=== PATIENT | male | born 1970 | race Caucasian/White ===

== ENCOUNTER 2016-10-25 10:24 | Inpatient (IN) | payer BC, OTHER ==
[~2016-10-25] VITALS: Ht 170.2 cm; Wt 90.7 kg
--- NOTE | 2016-10-26 16:30 | NUR ---
Intake assessment; Patient is a 45 year old male, AOX4 , presented to [facility] to Detoxify from Heroin, Oxycontin, Methamphetamine. Patient is from [place], [place] and arrived in intake office at approximately at 1600. Patient appears anxious with flushed face. Patient remained cooperative during nursing assessment. Patient denies any allergies or seizure history. Admitting vital signs are as follows; BP 121/56, HR 80, Temperature 98.0, respirations 18 and Spo2 98%, patient denies pain at this time. Height of 5'7 and weighs 200lbs. Educated patient regarding unit protocols and policies, verbalized understanding. Will continue with further assessment when patient is up in the unit.
[2016-10-26] MEDS ORDERED: [UNRECOGNIZED DRUG - CODE] TP (17:13)
[2016-10-26] MEDS ORDERED: FINA1TAB PO (17:13)
--- NOTE | 2016-10-26 18:21 | NUR ---
Admission note; Patient is a 45 year old male, AOX4 , presented to [facility] to Detoxify from Heroin, Oxycontin, Methamphetamine. Patient is from [place], [place] and arrived in intake office at approximately at 1600. He is the primary source of information. Patient is admitted under the care of Dr. Canada to room 302. Urine provided by patient for urine drug screen. Thorough body and belonging check done by HAND CLERICAL VERIFIER. Skin check done with no significant findings. Patient appears anxious with flushed face. Patient remained cooperative during nursing assessment. Patient denies any allergies or seizure history. Admitting vital signs are as follows; BP 121/56, HR 80, Temperature 98.0, respirations 18 and Spo2 98%, patient denies pain at this time. Height of 5'7 and weighs 200lbs. Discussed substance use history. Patient first started using Heroin 17 years ago, at this rate patient has been using 0.5 grams of heroin daily or every other day basis for 6 months, last used today prior to admission. Patient also reported using OxyContin for 4 months ranging a total use of 200mg per week, last used 10/21/16. Patient also reported using Methamphetamine for 1 year, amount was 0.5-1 gram daily or every other day basis, last used 10/25/16. Patient occasionally takes Klonopin when available, approximately total of 6mg/week last used 10/23/16. Discussed psych and medical history. Patient reported history of rosacea, anxiety and hernia surgery when he was 19 years old. Patient currently lives with his and 2 kids. Patient has been to [facility] 15 years ago and was transferred to [facility] in [place] after detox treatment. Patient does not have primary care physician. Patients current COWS is 4 and CIWA of 1. Patient oriented to unit by HAND CLERICAL VERIFIER. Safety measures in place. Will continue to monitor patient. MD notified.
[2016-10-26 18:24] LABS: *AMPHETAMINE, URINE POSITIVE (NEGATIVE); *BARBITURATE, URINE NEGATIVE (NEGATIVE); *CANNABINOID, URINE NEGATIVE (NEGATIVE); *COCCAINE, URINE POSITIVE (NEGATIVE); *OPIATE, URINE POSITIVE (NEGATIVE); *PHENCYCLIDINE SCREEN,URINE NEGATIVE (NEGATIVE)
--- NOTE | 2016-10-26 18:51 | NUR ---
End of shift note; Patient is AOX4. Md notified of patient's history. No medications administered at this time. All safety measures secured. Met all needs.
[2016-10-26] MEDS ORDERED: ONDANSETRON 4 MG/2 ML VIAL IM PRN (19:00)
[2016-10-26] MEDS ORDERED: MAGNESIUM HYDROXIDE 30 ML LIQUID UDC PO PRN (19:00)
[2016-10-26] MEDS ORDERED: LOPERAMIDE HCL 2 MG CAPSULE PO PRN ×2 (19:00)
[2016-10-26] MEDS ORDERED: MAG HYDROX/AL HYDROX/SIMETH 30 ML LIQUID UDC PO PRN (19:00)
[2016-10-26] MEDS ORDERED: ACETAMINOPHEN 325 MG TABLET PO PRN (19:00)
[2016-10-26] MEDS ORDERED: MIRALAX 17 GM POWD.PACK PO PRN (19:00)
[2016-10-26] MEDS ORDERED: LORAZEPAM 1 MG TABLET PO PRN ×2 (19:00)
[2016-10-26] MEDS ORDERED: LORAZEPAM 2 MG/1 ML VIAL IM PRN (19:00)
[2016-10-26] MEDS ORDERED: diphenhydrAMINE 50 MG CAPSULE PO PRN (19:00)
[2016-10-26] MEDS ORDERED: IBUPROFEN 600 MG TABLET PO PRN (19:00)
--- NOTE | 2016-10-26 19:15 | NUR ---
START OF SHIFT NOTE : Patient is a 45 year old male admitted to [facility] [place] [facility] on 10/26/2016 for Heroin, Oxycontin, Methamphetamine dependency . Patient denies any allergies or seizure history. . Patent is full code, regular diet, NKA , is on fall precautions. COWS is 4 and CIWA of 1 at 16:00. No SI/HI at this moment. Skin is dry, warm and intact, encouraged to notify staff with any concerns. Safety measures in place : bed on lowest position with side rails x2 up for safety, call light within reach. Will continue to monitor closely and offer help.
[2016-10-26 20:00] VITALS: BP 112/80
[2016-10-26 21:31] LABS: ALANINE AMINOTRANSFERASE 61 U/L (16-63); ALKALINE PHOSPHATASE 74 U/L (50-136); ASPARTATE AMINOTRANSFERASE 26 U/L (15-37); BASOPHILS % (AUTO) 0.8 % (0.0-2.0); BILIRUBIN,TOTAL 0.5 mg/dL (0.2-1.0); CARBON DIOXIDE 35 mmol/L (21-32); CHLORIDE 102 mmol/L (98-107); CREATININE 1.1 mg/dL (0.6-1.3); EOSINOPHILS # (AUTO) 0.2 K/uL (0.0-0.7); GLUCOSE 90 mg/dL (74-106); HEMATOCRIT 44.4 % (40-50); HEMOGLOBIN 15.1 G/DL (14.0-18.0); LYMPHOCYTES # (AUTO) 1.8 K/UL (0.8-4.8); LYMPHOCYTES % (AUTO) 38.9 % (20.5-51.5); MAGNESIUM 2.1 mg/dL (1.8-2.4); MEAN CORPUSCULAR HGB CONC 34 g/dL (32.0-37.0); MEAN CORPUSCULAR VOLUME 85.3 FL (82.0-92.0); MONOCYTES # (AUTO) 0.3 K/UL (0.1-1.30); MONOCYTES % (AUTO) 6.9 % (0.0-11.0); NEUTROPHILS # (AUTO) 2.2 K/UL (1.8-8.9); NEUTROPHILS % (AUTO) 49.4 % (38.5-71.5); PLATELET COUNT (AUTO) 250 K/UL (150-450); POTASSIUM 3.9 mmol/L (3.5-5.1); RED BLOOD CELL COUNT(AUTO) 5.21 MIL/UL (4.7-6.1); TOTAL PROTEIN, SERUM 7.9 g/dL (6.4-8.2); UREA NITROGEN, BLOOD 21 mg/dL (7-18); WHITE BLOOD COUNT (AUTO) 4.5 K/UL (4.0-11.2)
[2016-10-26 21:35] LABS: ETHANOL < 3 MG/DL (0-0)
[2016-10-27 04:00] VITALS: BP 104/64
--- NOTE | 2016-10-27 06:30 | NUR ---
END OF SHIFT NOTE : Patient is a 45 year old male admitted to [facility] [place] on 10/26/2016 for Heroin, Oxycontin, Methamphetamine dependency . Patient denies any allergies or seizure history. . Patent is full code, regular diet, NKA , is on fall precautions. COWS is 4 and CIWA of 1 at 16:00. No SI/HI at this moment. Skin is dry, warm and intact, encouraged to notify staff with any concerns. Pt remains compliant with the treatment plan. No PRNs were given during my shift. V/S remain WNL. RR=16, even and unlabored, lungs clear upon auscultation, abdomen soft and non- distended. Pt denies nausea, vomiting and diarrhea. LAST CIWA= 1 ,COWS=4 at 0400 , QIZCZJ=097 ml, voided x2 , slept 6 hours. Safety measures in place : bed on lowest position with side rails x2 up for safety, call light within reach. Will continue to monitor closely and offer help.
--- NOTE | 2016-10-27 07:43 | NUR ---
START OF SHIFT Pt 45 y/o male admitted for opiate dependence. Pt received in room on bed with eyes closed resting, but easily arousable to name. Pt alert and oriented to name, place, and time. Perrla. Skin warm and slightly moist to touch. Respirations even and unlabored. It was reported that pt slept for 6 hours last night. Bed on lowest position with side rails x2 up for safety. Call light within reach. No distress noted at this time.
[2016-10-27 08:42] VITALS: BP 118/71
[2016-10-27] MEDS: MULTIVITAMINS,THERAPEUTIC TABLET PO SCH (08:50)
[2016-10-27] MEDS: METHOCARBAMOL 750 MG TABLET PO PRN ×2 (08:50→21:14)
[2016-10-27] MEDS: DOCUSATE SODIUM 250 MG CAPSULE PO SCH (08:50)
[2016-10-27] MEDS: ONDANSETRON ODT 4 MG TAB.RAPDIS SL PRN (08:56)
--- NOTE | 2016-10-27 08:59 | NUR ---
PRN Pt states feels nauseous. Zofraon odt prn per MD order given and tolerated well.
[2016-10-27] MEDS ORDERED: TUBERCULIN,PURIF.PROT.DERIV. 5 TU/0.1 ML TEST ID ONE (09:00)
--- NOTE | 2016-10-27 09:00 | NUR ---
PRN Pt states has body aches 6/10. Robaxin po prn per Md order given and tolerated well.
--- NOTE | 2016-10-27 09:59 | NUR ---
PRN EVAL Pt denies nausea at this time.
--- NOTE | 2016-10-27 10:00 | NUR ---
PRN SHANITA Pt states pain 04/15.
[2016-10-27] MEDS: BUPRENORPHINE HCL 2 MG TAB.SUBL SL PRN ×2 (10:01→15:25)
--- NOTE | 2016-10-27 10:03 | NUR ---
PRN ADMINISTRATION: PT VERBALIZED HE WAS NOT FEELING WELL, ASSESSED PT AND NOTED WITH COWS OF 15. PRN 4 MG WAS ADMINISTERED.
--- NOTE | 2016-10-27 11:03 | NUR ---
PRN EVAL cows=6. Pt observed in room on bed watching television.
[2016-10-27 12:00] VITALS: BP 124/74
[2016-10-27] MEDS: BUPRENORPHINE HCL 2 MG TAB.SUBL SL SCH ×2 (14:22→21:14)
[2016-10-27] MEDS: DICYCLOMINE HCL 20 MG TABLET PO PRN (14:22)
--- NOTE | 2016-10-27 14:24 | NUR ---
PRN Pt with c/o stomach cramps. Bentyl po prn per MD order given and tolerated well.
[2016-10-27] MEDS: LORAZEPAM 1 MG TABLET PO SCH ×2 (15:21→21:13)
[2016-10-27] MEDS: GABAPENTIN 300 MG CAPSULE PO SCH ×2 (15:21→21:14)
--- NOTE | 2016-10-27 15:24 | NUR ---
PRN EVAL Pt observed sitting on bed watching television. Pt denies stomach cramp.
--- NOTE | 2016-10-27 15:25 | NUR ---
PRN Pt with cows =15. Subutex 4 mg po prn per MD order given and tolerated well.
--- NOTE | 2016-10-27 16:25 | NUR ---
PRN EVAL Pt with cows=5 and observed laying on bed in room watching television.
[2016-10-27 17:00] VITALS: BP 122/84
--- NOTE | 2016-10-27 18:24 | NUR ---
END OF SHIFT Pt 45 y/o male admitted for opiate dependence. Pt alert and oriented to name, place, and time. Perrla. Skin warm and slightly moist to touch. Respirations even and unlabored. Pt with bilateral hand tremors noted slightly. Pt observed mostly isolative to room throughout the day. Pt did not attend group activity even with encouragement. Pt was seen by MD today. Pt medication compliant and tolerated well. No ASE noted. Bed on lowest position with side rails x2 up for safety. Call light within reach. No distress noted at this time.
[2016-10-27 20:00] VITALS: BP 137/77
--- NOTE | 2016-10-27 20:10 | NUR ---
START OF SHIFT Received report from day shift nurse. Pt attended a group meeting and returned to his room after. He is a 45 yo male admitted to [facility] on 10/26 for opiate dependence. He is A&O x4 and ambulatory. NKA, full code status, and on a regular diet. He has a PMH of rosacea, hernia surgery, and anxiety. On admission he admitted to using klonopin 6mg per week "occasional use only", heroin 0.5 grams per day, oxycontin 200mg/week, and methamphetamine 0.5-1 gram per day. He started a 5 day subutex and 4 day Ativan taper today. Pt reports generalized muscle aches, joint aches, runny nose, and "crawling out of my skin". He is observed to have larger than normal pupils and flushed face. Tapers due tonight. Fall precautions in place. Bed is down with call light in reach.
--- NOTE | 2016-10-27 21:25 | NUR ---
PRN Robaxin and Milk of Magnesia Pt c/o generalized muscle and joint aches. PRN Robaxin administered. He reports no BM since prior to admission. Encouraged fluids. PRN Milk of Magnesia administered.
--- NOTE | 2016-10-27 21:47 | NUR ---
PRN Fleets enema Pt no BM in several days. Encouraged fluids. PRN Fleets enema administered. Addendum: 10/28/16 at 0401 by EDY STROUD RN Documentation done on incorrect patient.
--- NOTE | 2016-10-27 22:25 | NUR ---
PRN Robaxin and Milk of Magnesia reassessment PRN Robaxin effective. Pt reports muscle and joint aches are reduced to a mild level. Milk of Magnesia not yet effective.
[2016-10-28] VITALS: BP 111/69
[2016-10-28] MEDS: CLONIDINE HCL 0.1 MG TABLET PO PRN ×2 (00:08→12:33)
--- NOTE | 2016-10-28 00:10 | NUR ---
PRN Clonidine, Benadryl, and Motrin Pt reports feeling anxious, restless, with chills and inability to sleep. He reports generalized body aches 6/10. PRN Clonidine, Benadryl and Motrin administered.
--- NOTE | 2016-10-28 01:10 | NUR ---
PRN Clonidine, Benadryl, and Motrin reassessment PRN Clonidine, Benadryl, and Motrin effective. Pt is lying in bed resting with eyes closed. Respirations even and unlabored. Safety measures in place.
[2016-10-28 04:00] VITALS: BP 120/64
--- NOTE | 2016-10-28 04:00 | NUR ---
0400 COWS and CIWA deferred COWS and CIWA ordered Q4HWA. Pt is lying in bed resting with eyes closed. Vital signs obtained. Safety measures in place.
--- NOTE | 2016-10-28 07:22 | NUR ---
END OF SHIFT Report provided to day shift nurse. Pt is lying in bed resting. He is a 45 yo male admitted to [facility] on 10/26 for opiate dependence. He is A&O x4 and ambulatory. NKA, full code status, and on a regular diet. He has a PMH of rosacea, psoriasis, hernia surgery, and anxiety. On admission he admitted to using klonopin 6mg per week "occasional use only", heroin 0.5 grams per day, oxycontin 200mg/week, and methamphetamine 0.5-1 gram per day. He started a 5 day subutex and 4 day Ativan taper on 10/27/16. He is compliant with treatment. PRN Robaxin, Milk of Magnesia, Ibuprofen, Clonidine, and Benadryl administered along with tapers for the management of withdrawal symptoms. No BM reported yet. Vital signs have been stable. Last COWS 7 and CIWA 5. He drank 1092mL and slept for 7 hours[address] Fall precautions in place. Bed is down with call light in reach.
--- NOTE | 2016-10-28 07:44 | NUR ---
START OF SHIFT Pt 45 y/o male admitted for opiate dependence. Pt received in room on bed with eyes closed resting with television on, but easily arousable to name. Pt alert and oriented to name, place, and time. Perrla. Skin warm and slightly moist to touch. Respirations even and unlabored. It was reported that pt slept for 7 hours last night. Bed on lowest position with side rails x2 up for safety. Call light within reach. No distress noted at this time.
[2016-10-28 08:00] VITALS: BP 112/74
[2016-10-28] MEDS: LORAZEPAM 1 MG TABLET PO SCH ×4 (09:00→20:52)
[2016-10-28] MEDS ORDERED: BUPRENORPHINE HCL 2 MG TAB.SUBL SL SCH (09:00)
[2016-10-28] MEDS: GABAPENTIN 300 MG CAPSULE PO SCH ×3 (09:00→20:53)
[2016-10-28] MEDS: DOCUSATE SODIUM 250 MG CAPSULE PO SCH (09:00)
[2016-10-28] MEDS: MULTIVITAMINS,THERAPEUTIC TABLET PO SCH (09:00)
[2016-10-28 10:11] LABS: HEPATITIS B SURFACE AG Negative (Negative)
[2016-10-28] MEDS: DICYCLOMINE HCL 20 MG TABLET PO PRN (12:33)
[2016-10-28] MEDS: METHOCARBAMOL 750 MG TABLET PO PRN ×2 (12:33→21:35)
[2016-10-28] MEDS: ONDANSETRON ODT 4 MG TAB.RAPDIS SL PRN (12:33)
--- NOTE | 2016-10-28 12:38 | NUR ---
PRN Pt states has stomach cramps. Bentyl po prn per MD order given and tolerated well.
--- NOTE | 2016-10-28 12:38 | NUR ---
PRN Pt states feels nauseous. Zofran odt prn per MD order given and tolerated well.
--- NOTE | 2016-10-28 12:39 | NUR ---
PRN Pt states has body aches 8/10. Robaxin po prn per MD order given and tolerated well.
[2016-10-28 12:40] VITALS: BP 122/78
[2016-10-28] MEDS ORDERED: BUPRENORPHINE HCL 2 MG TAB.SUBL SL ONE (12:45)
--- NOTE | 2016-10-28 13:27 | NUR ---
PRN Pt with cows=12. Pt states skin is crawling and feels very uncomfortable. MD notified with new order for subutex 2 mg po once, noted and carried out.
--- NOTE | 2016-10-28 13:38 | NUR ---
PRN EVAL Pt denies any nausea at this time.
--- NOTE | 2016-10-28 13:38 | NUR ---
PRN SHANITA Pt denies any stomach cramps at this time.
--- NOTE | 2016-10-28 13:39 | NUR ---
PRKathy DIEHL Pt states body aches 04/15. Pt observed in room on bed watching television.
--- NOTE | 2016-10-28 14:27 | NUR ---
PRN EVAL Pt with cows=5 noted.
[2016-10-28] MEDS: BUPRENORPHINE HCL 2 MG TAB.SUBL SL SCH ×2 (14:52→20:53)
[2016-10-28 16:00] VITALS: BP 126/86
--- NOTE | 2016-10-28 18:37 | NUR ---
END OF SHIFT Pt 45 y/o male admitted for opiate dependence. Pt alert and oriented to name, place, and time. Perrla. Skin warm and slightly moist to touch. Respirations even and unlabored. Pt with bilateral hand tremors noted slightly. Pt with periods of anxiety this afternoon. Pt observed mostly isolative to room throughout the day. Pt selective with group activity. Pt was seen by MD today. Pt medication compliant and tolerated well. No ASE noted. Bed on lowest position with side rails x2 up for safety. Call light within reach. No distress noted at this time.
[2016-10-28 20:00] VITALS: BP 112/71
--- NOTE | 2016-10-28 20:00 | NUR ---
START OF SHIFT Report received from day shift nurse. Pt attended a group meeting and returned to his room after. He is a 45 [address] to [facility] on 10/26 for opiate dependence. He is A&O x4 and ambulatory. NKA, full code status, and on a regular diet. Pt has a PMH of rosacea, hernia surgery, and anxiety. On admission he admitted to using klonopin 6mg per week "occasional use only", heroin 0.5 grams per day, oxycontin 200mg/week, and methamphetamine 0.5-1 gram per day. He started a 5 day subutex and 4 day Ativan taper on 10/27. Pt reports feeling very anxious with skin crawling. He is emotional and tearful. His skin is moist and face is flushed. Provided support. Tapers due tonight. Fall precautions in place. Bed is down with call light in reach.
[2016-10-28] MEDS: HYDROXYZINE PAMOATE 25 MG CAPSULE PO PRN (21:35)
--- NOTE | 2016-10-28 21:35 | NUR ---
PRN Vistaril and Robaxin Pt reports feeling anxious and unable to relax. Ativan taper was only somewhat effective. He verbalizes that his skin is crawling and he has generalized body aches. COWS 6 and CIWA 5. PRN Vistaril and Robaxin administered.
--- NOTE | 2016-10-28 22:35 | NUR ---
PRN Vistaril and Robaxin reassessment PRN Vistaril and Robaxin effective. Pt is lying in bed resting with eyes closed. Respirations even and unlabored. Safety measures in place.
--- NOTE | 2016-10-29 | NUR ---
0000 Vitals refused/COWS and CIWA deferred Pt refused to be woken for 0400 vitals. He is lying in bed resting with eyes closed. Respirations even and unlabored. COWS and JOSEWA ordered Q4HWA. Safety measures in place. Addendum: 10/29/16 at 0539 by EDY STROUD RN Correction: Pt refused to be woken for 0000 vitals.
--- NOTE | 2016-10-29 04:00 | NUR ---
0400 Vitals refused/COWS and CIWA deferred Pt refused to be woken for 0400 vitals. He is lying in bed resting with eyes closed. Respirations even and unlabored. COWS and CIWA ordered Q4HWA. Safety measures in place.
--- NOTE | 2016-10-29 07:27 | NUR ---
END OF SHIFT Report provided to day shift nurse. Pt is lying in bed resting. He is a 45 yo male admitted to [facility] on 10/26 for opiate dependence. He is A&O x4 and ambulatory. NKA, full code status, and on a regular diet. Pt has a PMH of rosacea, hernia surgery, and anxiety. On admission he admitted to using klonopin 6mg per week "occasional use only", heroin 0.5 grams per day, oxycontin 200mg/week, and methamphetamine 0.5-1 gram per day. He started a 5 day subutex and 4 day Ativan taper on 10/27. Last COWS 6 and CIWA 5. PRN Vistaril and Robaxin administered. He drank 900mL and slept for 8 hours. Tapers due tonight. Fall precautions in ordered. Bed is down with call light in reach.
--- NOTE | 2016-10-29 07:39 | NUR ---
START OF SHIFT Pt 45 y/o male admitted for opiate dependence. Pt received in room on bed with eyes closed resting, but easily arousable to name. Pt alert and oriented to name, place, and time. Perrla. Skin warm and slightly moist to touch. Respirations even and unlabored. Bilateral hand tremors noted slightly. It was reported that pt slept for 8 hours last night. Bed on lowest position with side rails x2 up for safety. Call light within reach. No distress noted at this time.
[2016-10-29 08:00] VITALS: BP 115/71
[2016-10-29] MEDS: DOCUSATE SODIUM 250 MG CAPSULE PO SCH (08:41)
[2016-10-29] MEDS: LORAZEPAM 1 MG TABLET PO SCH ×3 (08:41→21:30)
[2016-10-29] MEDS: MULTIVITAMINS,THERAPEUTIC TABLET PO SCH (08:41)
[2016-10-29] MEDS: GABAPENTIN 300 MG CAPSULE PO SCH ×2 (08:41→14:19)
[2016-10-29] MEDS: BUPRENORPHINE HCL 2 MG TAB.SUBL SL SCH ×3 (08:41→21:00)
[2016-10-29] MEDS ORDERED: FINASTERIDE 1 MG PO SCH (09:00)
[2016-10-29] MEDS: CLONIDINE HCL 0.1 MG TABLET PO PRN (12:20)
[2016-10-29] MEDS: HYDROXYZINE PAMOATE 25 MG CAPSULE PO PRN (12:20)
[2016-10-29] MEDS: METHOCARBAMOL 750 MG TABLET PO PRN (12:20)
--- NOTE | 2016-10-29 12:25 | NUR ---
PRN Pt states has body aches 6/10. Robaxin po prn per MD order given and tolerated well.
--- NOTE | 2016-10-29 12:25 | NUR ---
PRN Pt states feels anxious. Vistaril po prn per MD order given and tolerated well.
--- NOTE | 2016-10-29 12:27 | NUR ---
PRN Pt states feels very anxious and appears restless with pressured speech noted. Catapres po prn per MD order given and tolerated well.
[2016-10-29 12:28] VITALS: BP 137/88
--- NOTE | 2016-10-29 13:25 | NUR ---
PRN SHANITA Pt states pain 04/15.
--- NOTE | 2016-10-29 13:27 | NUR ---
PRN SHANITA Pt observed laying on bed watching television. No distress noted at this time.
[2016-10-29] MEDS: CLONIDINE HCL 0.1 MG TABLET PO SCH ×2 (16:49→21:00)
[2016-10-29] MEDS: BACLOFEN 10 MG TABLET PO SCH ×2 (16:49→17:00)
--- NOTE | 2016-10-29 17:26 | NUR ---
MEDICATION Baclofen 10mg po due at 1700 non- admin per RX. medication was given at 1649.
[2016-10-29 17:34] VITALS: BP 112/75
--- NOTE | 2016-10-29 18:12 | NUR ---
END OF SHIFT Pt 45 y/o male admitted for opiate dependence. Pt alert and oriented to name, place, and time. Perrla. Skin warm and slightly moist to touch. Respirations even and unlabored. Pt with bilateral hand tremors noted slightly. Pt with periods of anxiety this morning. Pt observed mostly isolative to room throughout the day. Pt selective with group activity. Pt was seen by MD today. Pt medication compliant and tolerated well. No ASE noted. Bed on lowest position with side rails x2 up for safety. Call light within reach. No distress noted at this time.
[2016-10-29] MEDS ORDERED: HYDROXYZINE PAMOATE 25 MG CAPSULE PO SCH (19:00)
--- NOTE | 2016-10-29 19:50 | NUR ---
START OF SHIFT Report received from day shift nurse. Pt is lying in bed watching TV. He is a 45 yo male admitted to [facility] on 10/26 for opiate dependence. He is A&O x4 and ambulatory. NKA, full code status, and on a regular diet. Pt has a PMH of rosacea, hernia surgery, and anxiety. On admission he admitted to using klonopin 6mg per week "occasional use only", heroin 0.5 grams per day, oxycontin 200mg/week, and methamphetamine 0.5-1 gram per day. He started a 5 day subutex and 4 day Ativan taper on 10/27. Pt reports feeling anxious with body aches. He is noted with moist skin. Tapers due tonight. Fall precautions in place. Bed is down with call light in reach.
[2016-10-29 20:00] VITALS: BP 108/65
[2016-10-29] MEDS ORDERED: GABAPENTIN 300 MG CAPSULE PO SCH (21:00)
--- NOTE | 2016-10-29 21:54 | NUR ---
RN note AMA Patient verbalized that he wanted to go AMA and that he stated that "this place is not working out for me." Patient was reminded of the policies of the unit and he was not compliant and cooperative. Pt was disrespectful to staff. Benjie, branch rental manager, and Dr. Randhawa, notified. Patient was explained the risks and benefits of leaving AMA and patient still adamant. Patient's belongings were returned to him except for home meds, which are locked inside the pharmacy. Pharmacy is closed. Informed patient that he can come back today to package pick up his home medications. Vital signs are stable. No SOB noted. Patient was given a list of community resources. Pt signed AMA papers. Pt left unit at 2154 without complications.
[2016-10-30] MEDS ORDERED: LORAZEPAM 1 MG TABLET PO SCH (09:00)
[2016-10-30] MEDS ORDERED: BUPRENORPHINE HCL 2 MG TAB.SUBL SL SCH (09:00)
[2016-10-30] MEDS ORDERED: GABAPENTIN 300 MG CAPSULE PO SCH (09:00)
== END 2016-10-29 21:54 | disposition left against medical advice (07) | DRG 894 ==
LOC: SRC 10-26 16:08
PROVIDERS: ADMIT Internal Medicine; ATTEND Internal Medicine
DX: F11.23 Opioid dependence with withdrawal (principal); F14.10 Cocaine abuse, uncomplicated; F15.10 Other stimulant abuse, uncomplicated; F13.230 Sedative, hypnotic or anxiolytic dependence with withdrawal, uncomplicated
CPT/HCPCS: 36415; 70030-TC; 80307; 80324; 80349; 80361; 83735; 85025; 86580; 86592; 86705; 86803; 87340; 87806; G0480; Q0162; Q0163